=== PATIENT | male | born 1990 | race Caucasian/White ===

== ENCOUNTER → 2019-12-22 | Outpatient (CLI) | payer MEDICARE ==
[~2019-12-22] MED LIST: CEPHALEXIN500 M1 PO; LORTAB 5/500 501 TAB PO; NO HOME MEDICATIONS; SILVADENE CREAM1 TU TP
== END ==
LOC: COL.RAD 12-20 08:15
DX: M25.512 Pain in left shoulder (principal)
CPT/HCPCS: A9585; Q9967